=== PATIENT | female | born 1965 | race Caucasian/White ===

== ENCOUNTER 2017-06-24 13:38 | Emergency (ER) | payer OTHER ==
[~2017-06-24] VITALS: Ht 165.1 cm; Wt 100.0 kg
[~2017-06-24 13:38] MED LIST: KEFLEX500 MG PO; MOTRIN600 MG PO; NAPROXEN500 MG PO; NOHOMEMEDS; NORCO 5/3251 TABLET PO; PERCOCET 5/31 TABLET PO; PREDNISONE5 M1 PO; SILVADENE20 GM TP
[2017-06-24] MEDS ORDERED: NORCO 5/3251 TABLET PO (15:34)
[2017-06-24] MEDS ORDERED: FLEXERIL10 MG PO (15:34)
[2017-06-24 16:03] VITALS: BP 140/80
== END 2017-06-24 16:07 | disposition home or self-care (01) ==
LOC: EME 13:38
DX: S22.32XA Fracture of one rib, left side, initial encounter for closed fracture (principal); M79.602 Pain in left arm; W18.30XA Fall on same level, unspecified, initial encounter; Y99.0 Civilian activity done for income or pay; I10 Essential (primary) hypertension; E11.9 Type 2 diabetes mellitus without complications; F32.9 Major depressive disorder, single episode, unspecified
CPT/HCPCS: 71101; 73030; 73060; 99281; 99284

== ENCOUNTER 2017-07-17 18:54 | Emergency (ER) | payer OTHER ==
[~2017-07-17] VITALS: Ht 165.1 cm; Wt 99.2 kg
[~2017-07-17 18:54] MED LIST changes: +FLEXERIL10 MG PO
[2017-07-17 19:26] LABS: HEMATOCRIT 43.1 % (36.0-46.0); HEMOGLOBIN 15.2 G/DL (11.9-15.5); MCH 34.9 PG (29.0-34.0); MCHC 35.3 G/DL (30.0-36.0); MCV 99.1 FL (83-99); PLATELET COUNT 124 K/uL (156-360); RBC DIS.WIDTH-CV 12.4 % (11.8-14.6); RBC DIS.WIDTH-SD 45.5 % (39-53); RED BLOOD COUNT 4.35 M/uL (3.80-5.20); WHITE BLOOD COUNT 8.7 K/uL (4.1-10.2)
[2017-07-17 19:34] LABS: CHLORIDE 99 mEq/L (99-109); POTASSIUM 3.4 mEq/L (3.7-5.4); SODIUM 140 mEq/L (136-147)
[2017-07-17 19:36] LABS: GLUCOSE 172 mg/dL (70-99)
[2017-07-17 19:39] LABS: SERUM ETHYL ALCOHOL 354 mg/dL
[2017-07-17 19:40] LABS: CREATININE 0.7 mg/dL (0.6-1.3); GFR ESTIMATE (CALCULATED) > 59 mL/min/
[2017-07-17 19:41] LABS: UREA NITROGEN (BUN) 13 mg/dL (9-23)
[2017-07-17] MEDS ORDERED: LIBRIUM25 MG PO (22:59)
[2017-07-17 23:18] VITALS: BP 132/74
== END 2017-07-17 23:25 | disposition home or self-care (01) ==
LOC: EME 18:54
DX: F10.229 Alcohol dependence with intoxication, unspecified (principal); Y90.8 Blood alcohol level of 240 mg/100 ml or more; F32.9 Major depressive disorder, single episode, unspecified; R00.0 Tachycardia, unspecified; E11.9 Type 2 diabetes mellitus without complications; Z79.84 Long term (current) use of oral hypoglycemic drugs
CPT/HCPCS: 80048; 85027; 99281; 99284; G0480; J7030

== ENCOUNTER 2017-08-23 00:20 | Emergency (ER) | payer OTHER ==
[~2017-08-23] VITALS: Ht 165.1 cm; Wt 100.3 kg
[~2017-08-23 00:20] MED LIST changes: +LIBRIUM25 MG PO
[2017-08-23 00:50] LABS: HEMATOCRIT 40.2 % (36.0-46.0); MCH 34.3 PG (29.0-34.0); MCHC 34.8 G/DL (30.0-36.0); MCV 98.5 FL (83-99); PLATELET COUNT 116 K/uL (156-360); RBC DIS.WIDTH-CV 12.5 % (11.8-14.6); RBC DIS.WIDTH-SD 45.1 % (39-53); RED BLOOD COUNT 4.08 M/uL (3.80-5.20); WHITE BLOOD COUNT 6.4 K/uL (4.1-10.2)
[2017-08-23 01:06] LABS: ALBUMIN 3.9 g/dL (3.2-4.8); CHLORIDE 109 mEq/L (99-109); POTASSIUM 3.8 mEq/L (3.7-5.4); SODIUM 142 mEq/L (136-147)
[2017-08-23 01:08] LABS: GLUCOSE 313 mg/dL (70-99)
[2017-08-23 01:09] LABS: TOTAL PROTEIN 7.8 g/dL (6.4-8.3)
[2017-08-23 01:10] LABS: TOTAL BILIRUBIN 0.6 mg/dL (0.0-1.0)
[2017-08-23 01:11] LABS: SERUM ETHYL ALCOHOL 293 mg/dL
[2017-08-23 01:12] LABS: ALKALINE PHOSPHATASE 60 IU/L (3-129); CREATININE 0.7 mg/dL (0.6-1.3); GFR ESTIMATE (CALCULATED) > 59 mL/min/
[2017-08-23 01:13] LABS: UREA NITROGEN (BUN) 10 mg/dL (9-23)
[2017-08-23 01:14] LABS: AST (GOT) 112 IU/L (2-34)
[2017-08-23 01:15] LABS: ALT (GPT) 100 IU/L (3-49)
[2017-08-23 01:20] LABS: QUANTITATIVE HCG < 4.0 MIU/ML
[2017-08-23 01:59] LABS: APPEARANCE CLEAR ((CLEAR)); BILIRUBIN NEGATIVE; BLOOD NEGATIVE; COLOR YELLOW ((YELLOW)); GLUCOSE (STRIP) >=500; KETONES NEGATIVE; LEUKOCYTES NEGATIVE; NITRITE NEGATIVE; PROTEIN (STRIP) NEGATIVE; SPECIFIC GRAVITY 1.022 (1.000-1.030); UCUL ADDED? NO; UROBILINOGEN 0.2 MG/DL (0.2-1.0)
[2017-08-23 02:07] LABS: AMPHETAMINE NEGATIVE (500 ng/mL); BARBITURATES NEGATIVE (200 ng/mL); BENZODIAZEPINES PRESUMPTIVE POSITIVE (150 ng/mL); BUPRENORPHINE NEGATIVE (10 ng/mL); COCAINE NEGATIVE (150 ng/mL); METHADONE NEGATIVE (200 ng/mL); METHAMPHETAMINE NEGATIVE (500 ng/mL); OPIATES (MORPHINE) NEGATIVE (100 ng/mL); OXYCODONE NEGATIVE (100 ng/mL); PHENCYCLIDINE NEGATIVE (25 ng/mL); PROPOXYPHENE NEGATIVE (300 ng/mL); THC CANNABINOIDS NEGATIVE (50 ng/mL); TRICYCLIC ANTIDEPRESSANTS NEGATIVE (300 ng/mL)
[2017-08-23 02:37] LABS: BENZODIAZEPINES, URINE SCREEN POSITIVE (200 ng/mL)
[2017-08-23] MEDS ORDERED: LIBRIUM25 MG PO (10:57)
[2017-08-23 11:21] VITALS: BP 135/71
== END 2017-08-23 11:34 | disposition home or self-care (01) ==
LOC: EME → EDBD 00:20 → EME 00:20
PROVIDERS: Emergency Medicine
DX: F32.9 Major depressive disorder, single episode, unspecified (principal); F10.129 Alcohol abuse with intoxication, unspecified; R45.851 Suicidal ideations; I10 Essential (primary) hypertension; E11.9 Type 2 diabetes mellitus without complications; J06.9 Acute upper respiratory infection, unspecified; R91.1 Solitary pulmonary nodule; R05 Cough; R50.9 Fever, unspecified
CPT/HCPCS: 71046; 80053; 81003; 84702; 84999; 85027; 90839; 99281; 99284; G0480